=== PATIENT | female | born 1945 | race African-American/Black ===

== ENCOUNTER → 2021-05-01 | Outpatient (CLI) | payer OTHER, MEDICARE ==
[~2021-05-01] MED LIST: CELECOXIB200 MG PO; CLARITIN10 M3 PO; DOMPERIDONE PO; FISH OIL 1,0001 EAC9 PO; FUROSEMIDE 40 M40 M1 PO; IPRATROPIUM BRO30 ML NASAL; ISRADIPINE2.5 MG PO; KEFLEX500 MG PO; LEVO-T50 MCG PO; LEVOTHYROXINE100 MCG PO; OMEPRAZOLE40 MG PO; PILOCARPINE HCL5 M1 PO; POTASSIUM CHLO20 ME2 PO; PROAIR HFA8.5 GM INH; REFRESH CLASSI1 EACH OPHTHALMIC; ST. JOSEPH ASPI81 M1 PO; WIXELA 100-501 EACH INH
[2021-05-01 13:48] LABS: URINE BILIRUBIN NEGATIVE (Negative); URINE BLOOD NEGATIVE (Negative); URINE CLARITY CLEAR; URINE COLOR YELLOW; URINE GLUCOSE-RANDOM* NEGATIVE (Negative); URINE KETONES NEGATIVE (Negative); URINE LEUKOCYTES-REFLEX NEGATIVE (Negative); URINE NITRITE-REFLEX NEGATIVE (Negative); URINE PROTEIN (DIPSTICK) NEGATIVE (Negative); URINE UROBILINOGEN 0.2 E.U./dl (0.2-1.0)
[2021-05-01 13:49] LABS: MCHC 32.2 g/dL (28.0-37.0)
[2021-05-01 13:52] LABS: HEMATOCRIT 36.7 % (37.0-47.0); HEMOGLOBIN 11.8 gm/dL (12.0-15.0); MCH 26.6 pg (26.0-34.0); MCV 82.8 fL (80.0-100.0); RBC 4.44 mil/uL (4.20-5.00); RDW 16.8 % (10.5-14.5); WBC 4.9 thou/uL (4.0-11.0)
[2021-05-01 14:01] LABS: ALBUMIN 3.6 g/dL (3.4-5.0); CALCIUM 8.5 mg/dL (8.5-10.1); CREATININE 0.9 mg/dL (0.6-1.0); POTASSIUM 3.9 mmol/L (3.5-5.1)
[2021-05-01 14:03] LABS: INR 0.98; PROTIME 10.7 Seconds (10.5-12.1)
--- NOTE | 2021-05-01 15:33 | EKG ---
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 GUZMAN : 1945 Requested By: Ankur Baltazar Order Number: [id number] MD: Guerrero Conklin Measurements Intervals [place] Rate: 52 P: 41 TN: 222 QRS: 43 QRSD: 94 T: 30 QT: 446 QTc: 415 Interpretive Statements Sinus rhythm Prolonged TN interval RSR' in V1 or V2, probably normal variant Baseline wander in lead(s) V2 No previous ECG available for comparison Electronically Signed On 05-01-2021 15:33:33 CDT by Guerrero Conklin [email or web address] <ELECTRONICALLY SIGNED> By: Guerrero Conklin MD, [facility] 05/01/21 1533 1346 [id number] Guerrero Conklin MD, FAC /EPI
[2021-05-02 00:06] LABS: GLYCOHEMOGLOBIN (HGB A1C) 5.7 % (4.8-5.6)
== END ==
LOC: PAC 12:31
PROVIDERS: ATTEND Orthopaedic Surgery
DX: M17.12 Unilateral primary osteoarthritis, left knee (principal); Z96.652 Presence of left artificial knee joint

== ENCOUNTER 2021-05-06 07:33 | Inpatient (IN) | payer OTHER, MEDICARE ==
[~2021-05-06] VITALS: Ht 165.1 cm; Wt 79.4 kg
[2021-05-06 08:33] VITALS: BP 121/84
[2021-05-06 12:29] VITALS: BP 145/94
--- NOTE | 2021-05-06 13:54 | NUR ---
ASSUMED PT CARE AT 1210 FROM PT. PT IS ALERT & ORIENTED X4. PT HAS IV SITE ON R HAND 20 GAUGE. PT HAD LEFT TOTAL KNEE REPLACEMENT TODAY. PT HAS BILATERAL KNEE HIGH JUDE HOSES, DAO DRESSING, MEDICUM HEMO VAC AND ICE PACK. PT IS ON ROOM AIR. COMPLETED ADMISSION. PT SON AT THE BEDSIDE. PT ON THE BED, BED ON THE LOWEST POSITION, SIDE RAILS UP, CALL LIGHT WITHIN REACH. WILL CONTINUE TO MONITOR PT. FOLLOW POC.
[2021-05-06 18:23] VITALS: BP 112/72
[2021-05-06 19:32] VITALS: BP 108/73
--- NOTE | 2021-05-06 19:54 | NUR ---
ASSUMED PT CARE AT 1210 FROM PACU. PT IS ALERT & ORIENTED X4. PT HAS IV SITE ON R HAND 20 GAUGE. PT IS UP WITH ASSIST X1 WITH GAITBELT AND WALKER. PT USES BEDSIDE COMMODE. PT HAS DAO DRESSING, BILATERAL KNEE HIGH JUDE HOSES, ICE PACK AND MEDIUM HEMO VAC. PT C/O OF PAIN AND GIVEN PAIN MEDICATION PER PT REQUEST. CALLED PREOP BUT NOBODY WAS ANSWERING DUE TO PT MISSING EYEGLASSES. PT FAMILY WAS AT THE BEDSIDE THIS AFTERNOON. PT TOLERATED DIET AND MEDICATION WELL DURING THE SHIFT. PT ON THE BED, BED ON THE LOWEST POSITION, SIDE RAIL UP, CALL LIGHT WITHIN REACH. WILL CONTINUE TO MONITOR PT. FOLLOW POC.
[2021-05-07 04:33] VITALS: BP 148/70
[2021-05-07 05:31] LABS: HEMATOCRIT 28.3 % (37.0-47.0); HEMOGLOBIN 9.3 gm/dL (12.0-15.0); MCH 27.2 pg (26.0-34.0); MCHC 32.8 g/dL (28.0-37.0); MCV 82.9 fL (80.0-100.0); RBC 3.42 mil/uL (4.20-5.00); RDW 17.1 % (10.5-14.5); WBC 6.7 thou/uL (4.0-11.0)
--- NOTE | 2021-05-07 07:52 | O ---
[facility] [place] [address] OPERATIVE REPORT Name: LLOYD COLON Room #: 444-P [facility] IN M.R.#: [id number] Admission: 05/06/21 Attend Phys: Ankur Baltazar MD Discharge: Date of : 43 Report #: [id number] THIS REPORT FOR: cc: Jaun Weeks MD, Andrea A. MD Clymer, David J. MD ~ DOC #: [id number] Ankur Baltazar MD DATE OF SERVICE: 05/06/2021 PREOPERATIVE DIAGNOSIS: End-stage degenerative arthritis, left knee with varus malalignment and mild flexion contracture. POSTOPERATIVE DIAGNOSIS: End-stage degenerative arthritis, left knee with varus malalignment and mild flexion contracture. PROCEDURE: Left total knee arthroplasty. SURGEON: Ankur Baltazar MD. INDICATIONS: This is a healthy, active 75-year-old female who has progressive degenerative arthritis involving the left knee. She has had similar problems on the right side, which were improved with total knee replacement a number of years ago. She is anxious now to go ahead with left total knee arthroplasty. DESCRIPTION OF PROCEDURE: The patient was taken to the operating room where she was placed under general anesthesia. A femoral nerve block was also applied. The left knee was meticulously prepped and draped. Prophylactic intravenous antibiotics were administered. A thigh tourniquet was inflated to 300 mmHg. An anterior longitudinal skin incision was made and carried through the medial retinaculum. The patella was reflected laterally. Marked degenerative change in all three compartments was noted. The knee is in mild varus position with complete loss of cartilage on the medial side and slightly less severe damage at the patella in the lateral compartment. The [employer] knee system was utilized. Intramedullary guides were used on both the femur and the tibia. The femur was cut in 5 degrees of valgus. A size 4 left cruciate retaining femoral component seemed to fit nicely. The tibia surface was cut perpendicular to the long axis of the bone, preserving as much medial bone as possible to allow correction of the varus malalignment. The tibia was also best suited for a size 4 tibial component. A trial reduction was performed and a 9 mm polyethylene insert fit nicely. The knee is still slightly tight on the medial side and slightly lax on the lateral side. Very limited lateral release was performed to allow better balancing. The knee was gently manipulated and at this point, full knee extension was established and the knee seemed stable and appropriate alignment with about 3-5 degrees of valgus. The patellar surface was resected and a 36 mm patellar button fit nicely and a trial reduction was performed. The [address] [address] OPERATIVE REPORT Name: LLOYD COLON Room #: 444-P [facility] IN M.R.#: [id number] Admission: 05/06/21 Attend Phys: Ankur Baltazar MD Discharge: Date of : 43 Report #: [id number] patella seemed to track nicely and appears to be stable. The trial components were removed. The intramedullary canal was blocked with a bone block on both the femoral and tibial sides. Methyl methacrylate cement was mixed and injected into the porous surface of the proximal tibia. The [employer] size 4 left Emelia II tibial component was impacted into position. It seated nicely and appeared to be secure. Excess cement was removed from around its margin. A 9 mm Legion retaining, high flexion polyethylene insert was then applied. This was snapped into place and seated nicely and appeared to be secure. The [employer] size 4 left cruciate retaining Legion femoral component was impacted on the distal femur. Moderate amount of cement was used at the distal locking holes where the bone is somewhat osteoporotic. This component also seated nicely and appeared to be secure. Alignment, range of motion and stability were assessed and felt to be satisfactory. The patellar button was cemented into place and secured with a patellar clamp. Gentle pressure was held until the cement had hardened. Once the cement was firm, alignment, range of motion and stability were once again assessed and felt to be satisfactory. The patella seemed to track nicely and appeared to be stable. The wound was copiously irrigated. A single Hemovac was left in the wound exiting through a separate stab incision. The fascia was closed with multiple #1 Vicryl sutures. The subcutaneous tissues were closed with 0 Monocryl. The skin was closed with skin han. A sterile dressing was applied. The patient was awakened and returned to recovery room in good condition. MD TAWNY Varela/QUANG <ELECTRONICALLY SIGNED> By: Ankur Baltazar MD 05/07/21 0752 1007 1100 Ankur Baltazar MD /nt
[2021-05-07 08:10] VITALS: BP 140/83
--- NOTE | 2021-05-07 14:22 | NUR ---
PT ADMITTED RELATED TO LT TOTAL KNEE REPLACEMENT. CM REVIEWED CHART AND SPOKE WITH CARE TEAM. CM MET WITH PT AT BEDSIDE THIS DAY. PT APPEARED TO BE A&O X4. CM ROLE INTRODUCED. PT INIDCATED SHE LIVES ALONE IN A TOWNOUSE WITH 2 STEPS TO ENTER AND 14 INSIDE. PT INDICATED SHE PLANS TO STAY IN A ROOM ON THE LOWER LEVEL UPON DC. PT STATED THAT SHE HAS A FWW, CANE, SHOWER CHIAR, CPAP, AND TOILET RISER FOR HOME USE. PT INDICATED SHE IS ESTABLISHED WITH OP THERAPY AT [facility] TO START THURSDAY. CARE TEAM INDICATED THAT IS IS ANTICAPTED THAT PT MAY BE MEDICALLY STABLE TO DC TOMORROW. PT HAS ALL NEEDED DME AND IS ESTABLISHED WITH OP PT. CM FOLLOWING SHOULD ANY OTHER DC NEEDS ARISE.
[2021-05-07 16:45] VITALS: BP 165/85
--- NOTE | 2021-05-07 18:44 | NUR ---
Patient alert and orinted x4, up with assist x1, on room air, pain meds given per MAR, dressing dry/clean/intact, drain emptied throughout shift, vital signs stable, and afbriele. Bed alarm and chair alarm on, call light with in reach, will continue to monitor.
[2021-05-07 20:03] VITALS: BP 128/73
[2021-05-08 05:34] LABS: HEMATOCRIT 27.1 % (37.0-47.0); HEMOGLOBIN 9.1 gm/dL (12.0-15.0); MCH 27.6 pg (26.0-34.0); MCHC 33.6 g/dL (28.0-37.0); MCV 81.9 fL (80.0-100.0); RBC 3.3 mil/uL (4.20-5.00); RDW 16.5 % (10.5-14.5); WBC 7.8 thou/uL (4.0-11.0)
[2021-05-08 06:30] VITALS: BP 150/91
[2021-05-08 07:59] VITALS: BP 148/80
--- NOTE | 2021-05-08 08:08 | NUR ---
PT C/O PAIN TO HER L KNEE,MANAGED WITH MED.DRSG C/DI.UP WITH ASSIST TO THE BSC.PT ABLE TO MAKE HER NEEDS KNOWN.PT LOOKING FORWARD TO BE DC'D TODAY.AM NURSE NOTIFIED ABOUT PT LOSING HER GLASSES.
--- NOTE | 2021-05-08 15:10 | NUR ---
PT WORKED WITH PT TWICE THIS DAY SHE INDICATED THEY THINKS SHE WOULD BE OK TO DC HOME TOMORROW. SHE ISN'T YET SURE.. CM PROVIDED SNF LIST FOR REVIEW IF IN THE EVENT SHE WANTS SHORT TERM SKILLED POST ACUTE CARE STAY. CM FOLLOWING REGARDING DC PLANNING.
[2021-05-08 15:31] VITALS: BP 122/73
--- NOTE | 2021-05-08 18:17 | NUR ---
ASSUMED CARE OF PT AT 0700 THIS MORNING. PT HAD LEFT KNEE REPLACEMENT 05/06/21. PT IS A/OX4 AND ABLE TO AMBULATE WITH WALKER AND GB. ASSESSMENTS CHARTED AND IS OTHERWISE UNREMARKABLE. HEMOVAC WAS PULLED THIS MORNING. PT HAS DAO DRESSING WITH ICE PACKS. IV IN RIGHT W SL. CALL LIGHT AND OTHER NEEDS ARE PLACED WITHIN REACH. PHYS MICHELE AND OT HAVE WORKED WITH PT TODAY. PT CAN GO HOME TOMORROW IF SHE FEELS COMFORTABLE. MEDS AND TX GIVEN NEEDED AND SCHEDULED.
[2021-05-08 19:38] VITALS: BP 137/87
[2021-05-09 04:40] VITALS: BP 131/84
[2021-05-09 05:32] LABS: HEMATOCRIT 25.9 % (37.0-47.0); HEMOGLOBIN 8.7 gm/dL (12.0-15.0); MCH 27.6 pg (26.0-34.0); MCHC 33.7 g/dL (28.0-37.0); MCV 81.9 fL (80.0-100.0); RBC 3.16 mil/uL (4.20-5.00); RDW 16.5 % (10.5-14.5); WBC 6.6 thou/uL (4.0-11.0)
[2021-05-09 07:41] VITALS: BP 126/63
--- NOTE | 2021-05-09 08:23 | NUR ---
PT C/O PAIN TO HER L KNEE,MANAGED WITH MED.UP WITH ASSIST X1 TO THE BSC.DRSG WITH MIN DRAINAGE.PT ABLE TO MAKE HER NEEDS KNOWN.PT ANTICIPATING TO BE DC'D LATER IN THE DAY.REPORT TO AM NURSE.
--- NOTE | 2021-05-09 10:22 | NUR ---
Assumed care of pt at 0700. Pt a&ox4. Pain controlled with prn pain meds. Dressing intact. Up to the chair with OT. Will work with physical therapy. Possible d/c to home today. Call light within reach. Fall precautions in place. Will continue to monitor.
[2021-05-09 12:26] VITALS: BP 126/63
--- NOTE | 2021-05-10 08:37 | D ---
[facility] [place] [address] DISCHARGE SUMMARY Name: LLOYD COLON Room #: 444-P [facility] IN M.R.#: [id number] Admission: 05/06/21 Attend Phys: Ankur Baltazar MD Discharge: 05/09/21 Date of : 43 Report #: [id number] THIS REPORT FOR: cc: Jaun Weeks MD, Andrea A. MD Clymer,Ankur Gunter MD ~ DOC #: [id number] Ankur Baltazar MD DATE OF SERVICE: 05/09/2021 FINAL DIAGNOSIS: End-stage degenerative arthritis, left knee. OPERATIVE PROCEDURE: Left total knee arthroplasty. HISTORY: This fit, active and fully independent 75-year-old female presents with progressive degenerative arthritis involving the left knee. She has had similar problems on the right with good result following total knee replacement. She is here for left total knee replacement. HOSPITAL COURSE: The patient was admitted and taken to the operating room and underwent left total knee replacement. She tolerated this quite nicely. Postoperatively, her pain was managed with IV analgesics, then oral analgesics. She was started back on a regular diet and her routine medications. She made excellent progress with therapy and now seems functional and stable and independent. Her hemoglobin is 8.9, but she has no symptoms. She feels ready for discharge home with family assistance today. She will plan for outpatient therapy and I will see her back in my office in 1 week. DISCHARGE MEDICATIONS: Include Synthroid 100 mcg daily, isradipine 2.5 mg b.i.d., Lasix 40 mg daily, potassium 20 mEq daily, ProAir inhaler p.r.n., fish oil 1000 mg daily, pilocarpine 5 mg daily, hydrocodone 10 mg q. 6 hours p.r.n. for pain, Xarelto 10 mg daily. She will call me if there are any problems or questions. I will plan to see her back in my office in 1 week for followup. MD TAWNY Varela/VICKEY <ELECTRONICALLY SIGNED> By: Ankur Baltazar MD 05/10/21 0837 [id number] [id number] Ankur Baltazar MD /nt
== END 2021-05-09 14:37 | disposition home or self-care (01) | DRG 470 ==
LOC: OR → TBA 07:33 → 4S 07:33 → EDSTATUS 10:01 → PRE 10:11 → 4S 11:57 → OR 12:31 → 4S 05-09 14:37
PROVIDERS: ADMIT Orthopaedic Surgery; ATTEND Orthopaedic Surgery
PROC: 0SRD0J9 Replacement of Left Knee Joint with Synthetic Substitute, Cemented, Open Approach (ICD-10-PCS; principal; 2021-05-06)
PROC: 3E0T3BZ Introduction of Anesthetic Agent into Peripheral Nerves and Plexi, Percutaneous Approach (ICD-10-PCS; principal; 2021-05-06)
PROC: 5A09457 Assistance with Respiratory Ventilation, 24-96 Consecutive Hours, Continuous Positive Airway Pressure (ICD-10-PCS; 2021-05-07)
DX: M17.12 Unilateral primary osteoarthritis, left knee (principal); M24.562 Contracture, left knee; J45.909 Unspecified asthma, uncomplicated; Z96.651 Presence of right artificial knee joint; I10 Essential (primary) hypertension; E89.0 Postprocedural hypothyroidism; K21.9 Gastro-esophageal reflux disease without esophagitis; E11.9 Type 2 diabetes mellitus without complications; J44.9 Chronic obstructive pulmonary disease, unspecified; E66.3 Overweight; M25.362 Other instability, left knee; M47.896 Other spondylosis, lumbar region; Z88.2 Allergy status to sulfonamides; Z98.42 Cataract extraction status, left eye; Z98.41 Cataract extraction status, right eye; Z82.49 Family history of ischemic heart disease and other diseases of the circulatory system; Z90.710 Acquired absence of both cervix and uterus; Z83.3 Family history of diabetes mellitus; Z83.6 Family history of other diseases of the respiratory system; Z80.3 Family history of malignant neoplasm of breast; Z68.29 Body mass index [BMI] 29.0-29.9, adult
CPT/HCPCS: 10102; 50010; 50101; 50415; 50954; 51130; 51225; 51412; 56525; 57095; 57103; 57104; 57180; 58449; 62110; 62900; 64043; 65060; 70005